=== PATIENT | female | born 1990 | race Caucasian/White ===

== ENCOUNTER 2020-03-05 10:52 | Emergency (ER) | payer SELFPAY ==
[2020-03-05 11:01] VITALS: BP 117/53; PULSE 98; RESP 18; TEMP 37.3; O2SAT 100
--- NOTE | 2020-03-05 11:03 | ED.FEVER ---
HPI - Fever General Chief Complaint: Fever Stated Complaint: Fever Time Seen by Provider: 03/05/20 11:03 Source: patient and RN notes reviewed History of Present Illness HPI Narrative: Patient is a 29-year-old female who presents the urgent care with complaints of a fever off and on for the last few days. Patient states that for the last week she has been at work with no air conditioning and every time they take her temperature she has a low-grade fever . Patient states she has been sent home twice for the fever. Denies of any other upper respiratory symptoms. Patient states that she is taken her temperature a couple times but otherwise has had a subjective fever and feels warm . Patient pointed to her forehead and states that she has been taking her temperature rectally . Denies of any ear pain, sore throat, cough. No other acute complaints. Denies of any urinary symptoms or abdominal pain. Patient denies of any known exposure to COVID. No acute distress noted. Patient is alert, active and does not appear to be fatigued or lethargic. Patient aware of the plan of care. Related Data Home Medications Medication Instructions Recorded Confirmed No Home Medications 03/05/20 03/05/20 Allergies Allergy/AdvReac Type Severity Reaction Status Date / Time No Known Allergies Allergy Verified 03/05/20 11:02 Review of Systems Review of Systems: Narrative: CONSTITUTIONAL: Reports of intermittent low-grade temperatures EYES: Denies visual changes, redness, or discharge. ENT: Denies rhinorrhea, congestion, sore throat, or otalgia. CARDIOVASCULAR: Denies chest pain, palpitations, or edema. RESPIRATORY: Denies cough or dyspnea. GASTROINTESTINAL: Denies abdominal pain, nausea, vomiting, or diarrhea. GENITOURINARY: Denies dysuria or hematuria. SKIN: Denies rash or itching. MUSCULOSKELETAL: Denies back pain, joint pain, or myalgia. NEUROLOGIC: Denies headache, numbness, or weakness. All other systems reviewed are negative, except as documented in HPI. CONSTITUTIONAL: Denies fever, chills, or sweats. PMFSH Comments At the time of my signature, I reviewed and agree with the nursing past medical, surgical, social, and family history. There is no relevant family history pertinent to the patient complaint. Exam Narrative: Exam Narrative: GENERAL: This is a well-nourished, well-developed patient, in no apparent distress. HEAD: normocephalic, atraumatic. EYES: PERRL. Sclera clear/white. Vision is grossly intact. EARS: External ears normal, auditory canals clear and without drainage, TMs normal without perforation. Hearing grossly intact. NOSE: External nose normal with no obvious nasal discharge, nares without redness, no rhinorrhea. THROAT: Mucous membranes moist, posterior pharynx clear. NECK: Neck supple CARDIOVASCULAR: Regular rate and rhythm without murmurs, gallops, or rubs. RESPIRATORY: Clear to auscultation. Breath sounds equal bilaterally. No wheezes, rales, or rhonchi. SKIN: warm, intact with no suspicious lesions or rash, good texture and turgor. NEURO: awake, alert, and oriented to person, place and time. There were no obvious focal neurologic abnormalities. EXTREMITIES: No clubbing, cyanosis, or edema. Course Vital Signs Vital signs: Vital Signs Temperature 99.1 F 03/05/20 11:01 Pulse Rate 98 03/05/20 11:01 Respiratory Rate 18 03/05/20 11:01 Blood Pressure 117/53 L 03/05/20 11:01 Pulse Oximetry 100 03/05/20 11:01 Temperature 99.1 F 03/05/20 11:01 Pulse Rate 98 03/05/20 11:01 Respiratory Rate 18 03/05/20 11:01 Blood Pressure 117/53 L 03/05/20 11:01 Pulse Oximetry 100 03/05/20 11:01 Reviewed MDM - Fever MDM Narrative Medical decision making narrative: Advised the patient to rest and use Tylenol/ibuprofen as needed. Increase water intake and avoid long hours without air conditioning or sitting outside in the 100 degree heat. If you develop any increase in symptoms associated with
== END 2020-03-05 11:13 | disposition home or self-care (01) ==
PROVIDERS: Emergency Provider Nurse Practitioner Family
DX: Z71.1 Person with feared health complaint in whom no diagnosis is made (principal)
CPT/HCPCS: 99211; 99212; G0463

== ENCOUNTER 2020-05-08 17:08 | Emergency (ER) | payer SELFPAY ==
[2020-05-08 17:11] VITALS: BP 107/63; PULSE 94; RESP 14; TEMP 37.1; O2SAT 99
--- NOTE | 2020-05-08 17:42 | ED.EAR ---
HPI - Ear Problem General Chief complaint: Ear Stated complaint: ear pain Time Seen by Provider: 05/08/20 17:43 Source: patient and RN notes reviewed Mode of arrival: ambulatory Limitations: no limitations History of Present Illness HPI Narrative: 29-year-old female presents with concern for a history of right knee pain that is been worsening. Also reports left ear pain began. She denies rhinorrhea, nasal congestion, fever, cough, shortness of breath. Reports history of seasonal allergies, denies she is been taking anything for seasonal allergies. MD Complaint: ear pain Related Data Allergies Allergy/AdvReac Type Severity Reaction Status Date / Time No Known Allergies Allergy Verified 05/08/20 17:21 Review of Systems Review of Systems: Narrative: CONSTITUTIONAL: Denies malaise, chills, sweats, or fever. EYES: Denies visual changes, redness, or discharge. ENT: Denies rhinorrhea, congestion, sinus pain, and sore throat. Reports right and left otalgia, worse on the CARDIOVASCULAR: Denies chest pain, palpitations, or edema. RESPIRATORY: Denies cough dyspnea. GASTROINTESTINAL: Denies abdominal pain, nausea, vomiting, diarrhea SKIN: Denies rash or itching. MUSCULOSKELETAL: Denies myalgia. NEUROLOGIC: Denies headache. All systems reviewed & are unremarkable except as noted in HPI and below PMFSH Comments At time of signature, agree with nursing past medical, surgical, social and family history. There is no relevant family history pertinent to the presenting complaint Exam Narrative: Exam Narrative: GENERAL: Well-appearing, well-nourished, and in no acute distress. HEAD: Normocephalic EYES: PERRLA, conjunctivae clear ENT: Nares clear, turbinates erythematous, clear discharge. Mucous membranes moist. Left TM pearly chambers with dull light reflex, right TM erythematous; no tragal tenderness. NECK: Supple. No lymphadenopathy CHEST: Clear to auscultation, breath sounds equal. No wheezing, rhonchi, rales, or stridor. No respiratory distress, speaks in full sentences. HEART: Regular rate and rhythm. No murmur heard. SKIN: Warm, dry, no rash. NEURO: Alert and oriented x3. PSYCH: Normal mood and affect Course Course Emergency Course: Patient is aware of diagnosis, understands and agrees to treatment plan. Anticipatory guidance given. Patient agrees to follow-up as directed and is aware of reasons to seek care at the emergency department. Portions of this record may have been created with voice recognition software Vital Signs Vital signs: Vital Signs Temperature 98.7 F 05/08/20 17:11 Pulse Rate 94 05/08/20 17:11 Respiratory Rate 14 05/08/20 17:11 Blood Pressure 107/63 05/08/20 17:11 Pulse Oximetry 99 05/08/20 17:11 Temperature 98.7 F 05/08/20 17:11 Pulse Rate 94 05/08/20 17:11 Respiratory Rate 14 05/08/20 17:11 Blood Pressure 107/63 05/08/20 17:11 Pulse Oximetry 99 05/08/20 17:11 Reviewed. Medical Decision Making MDM Narrative Medical decision making narrative: Differential diagnosis considered: Benoit virus, strep pharyngitis, allergic rhinitis, upper respiratory tract infection, sinusitis, rhinosinusitis, nasopharyngitis. viral pharyngitis, otitis media, otitis externa, pneumonia, bronchitis, viral cough syndrome, viral syndrome, and influenza. Exam findings show no acute concerns or changes; patient is non-toxic appearing and is in no distress. Patient is appropriate for outpatient treatment and follow-up. Vital Signs Vital Signs: Vital Signs Temperature 98.7 F 05/08/20 17:11 Pulse Rate 94 05/08/20 17:11 Respiratory Rate 14 05/08/20 17:11 Blood Pressure 107/63 05/08/20 17:11 Pulse Oximetry 99 05/08/20 17:11 Temperature 98.7 F 05/08/20 17:11 Pulse Rate 94 05/08/20 17:11 Respiratory Rate 14 05/08/20 17:11 Blood Pressure 107/63 05/08/20 17:11 Pulse Oximetry 99 05/08/20 17:11 Critical Care Time Critical Care Time Critical Care Time: No Dischar
== END 2020-05-08 17:52 | disposition home or self-care (01) ==
PROVIDERS: Emergency Provider Nurse Practitioner
DX: H66.001 Acute suppurative otitis media without spontaneous rupture of ear drum, right ear (principal)
CPT/HCPCS: 99213; G0463

== ENCOUNTER 2020-11-15 14:32 | Emergency (ER) | payer OTHER, SELFPAY ==
--- NOTE | 2020-11-15 14:44 | ED.URI ---
HPI - URI/Sore Throat General Chief Complaint: Upper Respiratory Infection Stated Complaint: coughing and sore throat Time Seen by Provider: 11/15/20 14:47 Source: patient Limitations: no limitations History of Present Illness HPI Narrative: Trinity Cabrera is a 30 yo female with a PMH of who comes to express care with upper respiratory symptoms of cough, congestion, sore throat, headache since Friday. states he feels fatigued, went to [place] day constitution party last weekend with adults and children present. Related Data Allergies Allergy/AdvReac Type Severity Reaction Status Date / Time No Known Allergies Allergy Verified 05/08/20 17:21 Review of Systems Review of Systems: Narrative: CONSTITUTIONAL: Denies fever, chills, sweats. EYES: Denies visual changes, redness, discharge. ENT: Has rhinorrhea, has congestion, has sore throat, pallor otalgia. Has headache CARDIOVASCULAR: Denies chest pain, palpitations, edema. RESPIRATORY: Denies dyspnea, wheezing, no cough GASTROINTESTINAL: Denies abdominal pain, nausea, vomiting, diarrhea. GENITOURINARY: Denies dysuria, hematuria, abnormal discharge SKIN: Denies rash or itching. NEUROLOGIC: Denies numbness, or focal weakness. PSYCHIATRIC: Denies anxiety or depression. PMFSH Past Medical History Medical History No acute medical problems Family History Family History Grandparent Hypertension Social History Social History Smoking packs per day: 0.75 Smoking cigarettes per day: 15.0 Smoking status: Current every day smoker Tobacco type: cigarettes Alcohol intake: current Gender identity (if verbalized by the patient): Female Comments At time of signature, I agree with nursing past medical, surgical, social and family history. There is no relevant family history pertinent to the presenting complaint. Exam Narrative: Exam Narrative: GENERAL: This is a well-nourished, well-developed patient, in moderate distress. Pain is presently 6 on throat, headache HEAD: normocephalic, atraumatic. EYES: Sclera clear/white. Vision is grossly intact. EARS: External ears normal, auditory canals clear, mild erythema, and without drainage, TMs normal without perforation. Hearing grossly intact. NOSE: External nose normal without nasal discharge, nares with redness, has rhinorrhea. THROAT: Mucous membranes moist, posterior pharynx erythema, no exudate NECK: Neck supple, mild tenderness CARDIOVASCULAR: Regular rate and rhythm without murmurs, gallops, or rubs. RESPIRATORY: Clear to auscultation. Breath sounds equal bilaterally. No wheezes, rales, or rhonchi. GASTROINTESTINAL: Abdomen soft, non-tender, SKIN: warm, intact with no suspicious lesions or rash, good texture and turgor. NEURO: awake, alert, and oriented to person, place and time. There were no obvious focal neurologic abnormalities. Steady gait EXTREMITIES: Normal range of motion. BACK: Nontender without deformity Course Course Emergency Course: Patient developed upper respiratory symptoms on Friday after going to a birthday constitution party has headache congestion, fatigue, sore throat Strep test neg Covid test neg, PCR ordered Started on polymixin, flonase, zyrtec, mucinex Pt should quarantine until PCR results returned Vital Signs Vital signs: Vital Signs Temperature 98.3 F 11/15/20 14:46 Pulse Rate 86 11/15/20 14:46 Respiratory Rate 16 11/15/20 14:46 Blood Pressure 106/52 L 11/15/20 14:46 Pulse Oximetry 100 11/15/20 14:46 Temperature 98.3 F 11/15/20 14:46 Pulse Rate 86 11/15/20 14:46 Respiratory Rate 16 11/15/20 14:46 Blood Pressure 106/52 L 11/15/20 14:46 Pulse Oximetry 100 11/15/20 14:46 MDM - URI/Sore Throat Differential Diagnosis Differential diagnosis: Likely upper respiratory infection, sinusitis, viral infection, influenza,
[2020-11-15 14:46] VITALS: BP 106/52; PULSE 86; RESP 16; TEMP 36.8; O2SAT 100
[2020-11-16 17:33] LABS: SARS-CoV-2 RNA PCR Negative
== END 2020-11-15 15:21 | disposition home or self-care (01) ==
PROVIDERS: Emergency Provider Nurse Practitioner
DX: J06.9 Acute upper respiratory infection, unspecified (principal); Z20.822 Contact with and (suspected) exposure to COVID-19; F17.210 Nicotine dependence, cigarettes, uncomplicated
CPT/HCPCS: 87081; 87426; 87880; 99213; C9803; G0463; U0003; U0005